=== PATIENT | male | born 1970 | race African-American/Black ===

== ENCOUNTER 2021-04-19 10:22 | Emergency (ER) | payer MEDICAID ==
[~2021-04-19] VITALS: Ht 188 cm; Wt 110.0 kg
[2021-04-19] MEDS ORDERED: SODIUM CHLORIDE 0.9% 1,000 ML IV ONE (11:15)
[2021-04-19 11:27] LABS: BASOPHILS % 0.8 % (0.0-2.0); EOSINOPHILS % 4.2 % (0.0-5.0); HEMATOCRIT. 44.1 % (42.0-52.0); LYMPHOCYTES % 28.9 % (20.0-50.0); MEAN CORPUSCULAR HEMOGLOBIN 21.6 pg (28.0-32.0); MEAN PLATELET VOLUME 8.9 fl (7.4-10.4); MONOCYTES % 6.5 % (2.0-8.0); NEUTROPHILS % 59.6 % (40.0-76.0); PLATELET 195 x1000/uL (130-400); RED BLOOD CELL COUNT 6.49 mill/uL (4.7-6.1); RED CELL DISTRIBUTION WIDTH 15.4 % (11.6-14.6)
[2021-04-19 11:30] LABS: CHLORIDE 98 mEq/L (98-107)
[2021-04-19 11:39] LABS: BETA HYDROXYBUTYRATE 0.1 mMol/L (0.0-0.3)
[2021-04-19 11:58] LABS: PLATELET ESTIMATE NORMAL
[2021-04-19 13:20] VITALS: BP 130/80
== END 2021-04-19 13:23 | disposition home or self-care (01) ==
LOC: ER 10:34
DX: E11.65 Type 2 diabetes mellitus with hyperglycemia (principal); I10 Essential (primary) hypertension; Z98.890 Other specified postprocedural states
CPT/HCPCS: 36415; 80053; 82010; 82962; 85025; 93005; 99284; J7030

== ENCOUNTER 2024-02-02 12:13 | Inpatient (IN) | payer MEDICAID, OTHER ==
[~2024-02-02] VITALS: Ht 185.4 cm; Wt 62.6 kg
[2024-02-02 12:56] LABS: BASOPHILS % 3.1 % (0.0-2.0); EOSINOPHILS % 9.1 % (0.0-5.0); HEMATOCRIT. 35.5 % (42.0-52.0); HEMOGLOBIN. 10.7 g/dL (14.0-18.0); LYMPHOCYTES % 18.6 % (20.0-50.0); MEAN CORPUSCULAR HEMOGLOBIN 20.6 pg (28.0-32.0); MEAN CORPUSCULAR HGB CONC 30.2 g/dL (31.0-37.0); MEAN CORPUSCULAR VOLUME 68.2 fL (80.0-94.0); MEAN PLATELET VOLUME 7.8 fl (7.4-10.4); MONOCYTES % 3.8 % (2.0-8.0); NEUTROPHILS % 65.4 % (40.0-76.0); PLATELET 415 x1000/uL (130-400); RED BLOOD CELL COUNT 5.21 mill/uL (4.7-6.1); RED CELL DISTRIBUTION WIDTH 17.6 % (11.6-14.6); WHITE BLOOD COUNT 8.5 x1000/uL (4.5-11.0)
[2024-02-02 12:58] LABS: ADD RBC MORPHOLOGY YES; DIFFERENTIAL COMMENT 1
[2024-02-02 13:07] LABS: CHLORIDE 104 mEq/L (98-107); POTASSIUM 4.9 mEq/L (3.5-5.1); SODIUM 136 mEq/L (136-145)
[2024-02-02 13:08] LABS: CALCIUM 9.9 mg/dL (8.7-10.4); CARBON DIOXIDE 26 mEq/L (21-32)
[2024-02-02 13:08] LABS: CLARITY URINE CLEAR (CLEAR); COLOR URINE YELLOW (YELLOW); GLUCOSE URINE NEGATIVE (NEGATIVE); KETONES URINE 1+ (NEGATIVE); LEUKOCYTE ESTERASE URINE NEGATIVE (NEGATIVE); NITRITE URINE NEGATIVE (NEGATIVE); OCCULT BLOOD URINE NEGATIVE (NEGATIVE); PH URINE 5.5 (4.5-8.0); PROTEIN URINE NEGATIVE (NEGATIVE); SPECIFIC GRAVITY URINE 1.023 (1.005-1.030)
[2024-02-02 13:13] LABS: CREATININE 0.8 mg/dL (0.6-1.3); UREA NITROGEN BLOOD 19 mg/dL (9-23)
[2024-02-02 13:25] LABS: GLUCOSE 72 mg/dL (70-105)
[2024-02-02 14:48] LABS: ANISOCYTOSIS 1+; HYPOCHROMASIA 1+; MICROCYTOSIS 3+; PLATELET ESTIMATE SLIGHTLY INCREASED
[2024-02-02 15:05] LABS: ALANINE AMINOTRANSFERASE 15 IU/L (10-49); ALBUMIN 4.2 g/dL (3.2-4.8); ASPARTATE AMINOTRANSFERASE 13 IU/L (<34); BILIRUBIN DIRECT 0.3 mg/dL (<=3.0); BILIRUBIN TOTAL 0.9 mg/dL (0.1-1.0); TROPONIN I HIGH SENSITIVITY 4 ng/L (3.0-53)
[2024-02-02 15:38] LABS: BETA HYDROXYBUTYRATE 1.2 mMol/L (0.0-0.3)
[2024-02-02] MEDS ORDERED: MAGNESIUM/ALUMINUM HYDROXIDE/SIMETHICONE 30ML UDC PO PRN (18:15)
[2024-02-02] MEDS ORDERED: KETOROLAC 15MG/ML VIAL IV PRN (18:15)
[2024-02-02] MEDS ORDERED: ZOLPIDEM TARTRATE 5MG TABLET PO PRN (18:15)
[2024-02-02] MEDS ORDERED: GUAIFENESIN 200MG/10ML SUGAR FREE UDC PO PRN (18:15)
[2024-02-02] MEDS ORDERED: NITROGLYCERIN 0.4MG TABLET SL SL PRN (18:15)
[2024-02-02] MEDS ORDERED: DOCUSATE SODIUM 100MG CAPSULE PO PRN (18:15)
[2024-02-02] MEDS ORDERED: ACETAMINOPHEN 325MG TABLET PO PRN ×2 (18:15)
[2024-02-02] MEDS ORDERED: ONDANSETRON HCL 4MG/2ML INJ IV PRN (18:15)
[2024-02-02] MEDS ORDERED: CLONIDINE 0.1MG TABLET PO PRN (18:15)
[2024-02-02] MEDS ORDERED: DEXTROSE 50% WATER 50ML SYRINGE IV PRN (18:15)
[2024-02-02] MEDS ORDERED: IPRATROPIUM/ALBUTEROL 0.5-3(2.5)MG/3ML NEB NEB PRN (18:15)
[2024-02-02] MEDS: INSULIN LISPRO 100 UNITS/ML SUBCUT SCH (18:20)
[2024-02-02 18:33] LABS: IRON 33 ug/dL (65-175); TRIGLYCERIDE 69 mg/dL (0-150)
[2024-02-02 18:34] LABS: LDL CHOLESTEROL 111 mg/dL (5-100)
[2024-02-02 18:35] LABS: CHOLESTEROL 167 mg/dL (<200); HDL CHOLESTEROL 47 mg/dL (>55)
[2024-02-02 18:36] LABS: TOTAL IRON BINDING CAPACITY 249 ug/dl (250-425)
[2024-02-02 18:38] LABS: THYROID STIMULATING HORMONE 0.76 uIU/mL (0.55-4.78)
[2024-02-02 18:49] LABS: FOLIC ACID (FOLATE) SERUM 17.81 ng/mL (>5.38); VITAMIN B12 SERUM 633 pg/mL (211-911)
[2024-02-02] MEDS: BLOOD SUGAR DIAGNOSTIC STRIP TEST SCH (21:00)
[2024-02-02 23:05] VITALS: BP 135/82; PULSE 88; RESP 18; TEMP 36.61404; TEMP 36.6404; O2SAT 100
[2024-02-03 04:00] VITALS: BP 117/84; PULSE 59; RESP 18; TEMP 36.50292; O2SAT 99
[2024-02-03 06:02] LABS: CHLORIDE 105 mEq/L (98-107); POTASSIUM 4.7 mEq/L (3.5-5.1); SODIUM 138 mEq/L (136-145)
[2024-02-03 06:03] LABS: CARBON DIOXIDE 30 mEq/L (21-32)
[2024-02-03 06:08] LABS: CREATININE 0.9 mg/dL (0.6-1.3); GLUCOSE 78 mg/dL (70-105)
[2024-02-03 06:09] LABS: UREA NITROGEN BLOOD 20 mg/dL (9-23)
[2024-02-03 06:10] LABS: ALANINE AMINOTRANSFERASE 7 IU/L (10-49); ALBUMIN 3.6 g/dL (3.2-4.8); ASPARTATE AMINOTRANSFERASE 8 IU/L (<34)
[2024-02-03 06:11] LABS: BILIRUBIN TOTAL 0.5 mg/dL (0.1-1.0); PHOSPHORUS 4.6 mg/dL (2.5-4.9); PROTEIN TOTAL 6.8 g/dL (6.0-8.3)
[2024-02-03 06:37] LABS: HEMATOCRIT. 31.1 % (42.0-52.0); HEMOGLOBIN. 9.8 g/dL (14.0-18.0); MEAN CORPUSCULAR HEMOGLOBIN 21.2 pg (28.0-32.0); MEAN CORPUSCULAR HGB CONC 31.4 g/dL (31.0-37.0); MEAN CORPUSCULAR VOLUME 67.5 fL (80.0-94.0); MEAN PLATELET VOLUME 8.2 fl (7.4-10.4); PLATELET 356 x1000/uL (130-400); RED BLOOD CELL COUNT 4.61 mill/uL (4.7-6.1); RED CELL DISTRIBUTION WIDTH 17.1 % (11.6-14.6); WHITE BLOOD COUNT 8.7 x1000/uL (4.5-11.0)
[2024-02-03 07:12] LABS: DIFFERENTIAL COMMENT 1
[2024-02-03 08:00] VITALS: BP 123/75; PULSE 68; RESP 18; TEMP 36.50292; O2SAT 100
[2024-02-03] MEDS: LISINOPRIL 20MG TABLET PO SCH (10:25)
[2024-02-03] MEDS: ENOXAPARIN 40MG/0.4ML SYR SUBCUT SCH (10:26)
[2024-02-03] MEDS: FAMOTIDINE 20MG TABLET PO SCH (10:29)
[2024-02-03] MEDS: ASPIRIN 81MG EC TABLET PO SCH (10:42)
[2024-02-03 12:00] VITALS: BP 128/84; PULSE 64; RESP 18; TEMP 35.39172; O2SAT 98
[2024-02-03 16:00] VITALS: BP 128/86; PULSE 68; RESP 18; TEMP 36.50292; O2SAT 100
[2024-02-03 17:30] LABS: HYPOCHROMASIA 1+; MICROCYTOSIS 1+; PLATELET ESTIMATE NORMAL
[2024-02-03 20:00] VITALS: BP 109/58; PULSE 56; RESP 18; TEMP 36.55848; O2SAT 99
[2024-02-04] VITALS: BP 101/56; PULSE 58; RESP 18; TEMP 36.61404; O2SAT 99
[2024-02-04 04:00] VITALS: BP 109/62; PULSE 64; RESP 18; TEMP 36.61404; O2SAT 99
[2024-02-04 07:57] VITALS: BP 102/58; PULSE 65; RESP 20; TEMP 36.6696; O2SAT 98
[2024-02-04 10:14] VITALS: BP 132/78; PULSE 88; TEMP 97.1; O2SAT 98
[2024-02-04 12:00] VITALS: BP 112/65; PULSE 68; RESP 18; TEMP 36.55848; O2SAT 98
== END 2024-02-04 15:39 | disposition home or self-care (01) | DRG 420 ==
LOC: ER 12:50 → EDBEDREQ 15:30 → 5WST 17:01 → EDBEDREQ 17:07 → 8WST 22:50
PROVIDERS: ADMIT Internal Medicine; ATTEND Internal Medicine
DX: E11.649 Type 2 diabetes mellitus with hypoglycemia without coma (principal); I10 Essential (primary) hypertension; Z79.4 Long term (current) use of insulin; Z79.899 Other long term (current) drug therapy
CPT/HCPCS: 36415; 71045; 80048; 80053; 80061; 80076; 81003; 82010; 82607; 82746; 82962; 83036; 83540; 83550; 83735; 84100; 84439; 84443; 84484; 85025; 93005; 93306; 93970; 99291; J1650